=== PATIENT | female | born 1995 ===

== ENCOUNTER → 2024-02-19 08:11 | Outpatient (BNVA) | payer BC, MEDICAID, SELFPAY | PROVIDERS: Visit Provider Obstetrics & Gynecology | DX: Z30.9 Encounter for contraceptive management, unspecified (principal) | CPT/HCPCS: 81025 ==

== ENCOUNTER → 2024-03-29 11:28 | Outpatient (BNVA) | payer BC, MEDICAID, SELFPAY | PROVIDERS: Visit Provider Obstetrics & Gynecology | DX: N93.9 Abnormal uterine and vaginal bleeding, unspecified (principal) | CPT/HCPCS: 85025 ==

== ENCOUNTER → 2024-04-19 08:01 | Outpatient (BNVA) | payer BC, MEDICAID, SELFPAY | PROVIDERS: Visit Provider Obstetrics & Gynecology | DX: Z30.430 Encounter for insertion of intrauterine contraceptive device (principal) | CPT/HCPCS: 76830 ==

== ENCOUNTER 2025-02-03 14:56 | Outpatient (CLI) | payer BC, MEDICAID, SELFPAY ==
--- NOTE | 2025-02-03 15:03 | US_ITS ---
WS: [id number] THYROID ULTRASOUND HISTORY: NODULAR GOITER/FATIGUE/WT LOSS COMPARISON: None available. Right lobe: 0.8 cm x 0.8 cm x 4.2 cm (w x ap x l). Volume: 1.2 cm3. Normal size and echotexture. No significant are dominant nodules are present. Left lobe: 1.4 cm x 0.7 cm x 4.7 cm (w x ap x l). Volume: 2.3 cm3. Normal size and echotexture. No significant or dominant nodules are present. Isthmus: 0.2 cm. US/US thyroid [id number] IMPRESSION: Normal thyroid ultrasound.
== END 2025-02-03 14:57 | disposition home or self-care (01) ==
LOC: RAD 15:00
PROVIDERS: PCP Nurse Practitioner; Visit Provider Nurse Practitioner
DX: E04.9 Nontoxic goiter, unspecified (principal); R00.0 Tachycardia, unspecified; R63.4 Abnormal weight loss; E55.9 Vitamin D deficiency, unspecified; R53.83 Other fatigue
CPT/HCPCS: 76536

== ENCOUNTER 2025-03-25 08:11 | Outpatient (CLI) | payer BC, MEDICAID, SELFPAY ==
--- NOTE | 2025-03-25 08:19 | US_ITS ---
WS: [id number] US pelv w/transvag [id number] HISTORY: ACUTE PELVIC PAIN COMPARISON: 04/19/2024 Uterus: 7.0 cm x 4.9 cm x 4.4 cm. Normal size anteverted uterus. No fibroid or mass. Endometrium: 0.4 cm. IUD noted along the endometrial canal in good position. Right ovary: 2.9 cm x 1.7 cm x 3.0 cm. Normal size and vascularity, no cystic or solid masses. Small follicles. Left ovary: 1.8 cm x 1.6 cm x 1.3 cm. Normal size and vascularity, no cystic or solid masses. No free fluid in the cul-de-sac. US/US pelv w/transvag [id number] IMPRESSION: Normal pelvic ultrasound.
--- NOTE | 2025-03-25 08:19 | USR_ITS ---
PROCEDURE INFORMATION: Exam: US Bilateral Noninvasive Physiologic Study of the Lower Extremity Arteries, Limited Exam date and time: 03/25/2025 9:02 AM Age: 29 years old Clinical indication: Pain; Leg, upper; Bilateral; Additional info: Ic/acute pelvic pain TECHNIQUE: Imaging protocol: Bilateral Limited bilateral noninvasive physiologic studies of lower extremity arteries. Waveforms were not obtained. Images were documented and archived. Exam is limited. COMPARISON: US pelv w/transvag [id number] 03/25/2025 8:29 AM FINDINGS: The study was performed to evaluate EMELY only. Right Ankle-Brachial Index: 0.9. Left Ankle-Brachial Index: 1.0. US/CV ankle brachial index [id number] IMPRESSION: No evidence of stenosis or occlusion in the lower extremity.
== END 2025-03-25 08:12 | disposition home or self-care (01) ==
LOC: RAD 08:12
PROVIDERS: PCP Nurse Practitioner; Visit Provider Nurse Practitioner
DX: R10.2 Pelvic and perineal pain (principal); M79.605 Pain in left leg; M79.604 Pain in right leg
CPT/HCPCS: 76830; 76856; 93922